=== PATIENT | female | born 1945 | race Caucasian/White ===

== ENCOUNTER 2016-02-26 12:14 | Outpatient (CLI) ==
--- NOTE | 2016-02-26 13:10 | US ---
EXAM: ULTRASOUND CAROTID DUPLEX, BILATERAL HISTORY: Left carotid bruit, hyperlipidemia FINDINGS: Oconnor-scale ultrasound, color Doppler and spectral analysis was performed. Velocities are in meters per second. By oconnor scale and color Doppler imaging, there appears to be only minimal intimal thickening and sc attered atherosclerotic plaque in both carotid systems, including the bulbs and internal carotid art eries. RIGHT: External carotid artery peak systolic velocity: 0.9 Common carotid artery peak systolic velocity/end diastolic velocity: 0.7/0.2 Internal carotid artery peak systolic velocity: 1.0 ICA/CCA peak systolic velocity ratio: 1.6 ICA end diastolic velocity: 0.3 LEFT: External carotid artery peak systolic velocity: 1.0 Common carotid artery peak systolic velocity/end diastolic velocity: 0.7/0.2 Internal carotid artery peak systolic velocity: 1.1 ICA/CCA peak systolic velocity ratio: 1.6 ICA end diastolic velocity: 0.4 The right and left vertebral arteries were antegrade. IMPRESSION: 1. By oconnor scale and color Doppler imaging, there appears to be only minimal intimal thickening and scattered atherosclerotic plaque in both carotid systems, including the bulbs and internal carotid arteries. 2. Internal carotid artery peak systolic velocities and ICA/CCA peak systolic velocity ratios indic ate no hemodynamically significant stenosis bilaterally. 3. Both vertebral arteries were antegrade.
== END 2016-02-26 12:15 | disposition home or self-care (01) ==
LOC: RAD 12:14
PROVIDERS: ATTEND Family Medicine
DX: E78.5 Hyperlipidemia, unspecified (principal); R09.89 Other specified symptoms and signs involving the circulatory and respiratory systems